=== PATIENT | male | born 1940 | race Caucasian/White ===

== ENCOUNTER 2017-01-01 07:25 | Day surgery (SDC) | payer OTHER ==
[~2017-01-01] VITALS: Ht 172.7 cm; Wt 106.2 kg
[~2017-01-01 07:25] MED LIST: AGGR20025 PO; ATOR40TA49 PO; CARV12.5 PO; LASI20TA PO; LEVO75TA3 PO; LOPE2 PO; MAGN400C2 PO; PIOG15 PO; POTA-267 PO; PRIL20CA PO; TAB-TAB PO; TERA2CAP3 PO; VIST25CA PO
[2017-01-01] MEDS ORDERED: SODIUM CHLORID 0.9% 500 ML IV PRN (08:00)
[2017-01-01] MEDS ORDERED: LACTATED RINGER'S 1000 ML IV PRN (08:00)
[2017-01-01] MEDS ORDERED: ceFAZolin 2 GM PREMIX 50 ML IV SCH (08:00)
[2017-01-01] MEDS ORDERED: POVIDONE IODINE 5% (ANTISEPSIS KIT) 4 APPLICATIONS EACH NARE PRN (08:00)
[2017-01-01] MEDS ORDERED: MUPIROCIN 2% OINT 1 APPLIC/GM SYR NASAL SCH (08:00)
[2017-01-01] MEDS ORDERED: INSULIN HUMAN REGULAR 1,000 UNITS/10 ML VIAL SQ PRN (08:00)
[2017-01-01] MEDS ORDERED: METOPROLOL TARTRATE 25 MG TAB PO PRN (08:00)
[2017-01-01] MEDS ORDERED: CHLORHEXIDINE GLUCONATE 2 % 1 PACK (2 CLOTHS) TOPICAL PRN (08:00)
[2017-01-01] MEDS ORDERED: NS 1000 ML IV SCH (08:00)
[2017-01-01 08:10] VITALS: BP 145/81; PULSE 73; RESP 19; TEMP 97.8; O2SAT 98
[2017-01-01] MEDS ORDERED: VIST25CA PO (08:12)
[2017-01-01] MEDS ORDERED: FURO1TAB62 PO (08:12)
[2017-01-01] MEDS ORDERED: SINE25TA PO (08:12)
[2017-01-01] MEDS ORDERED: PRIN5TAB PO (08:12)
[2017-01-01] MEDS ORDERED: LIPI20TA PO (08:12)
[2017-01-01] MEDS ORDERED: FISH1000 (08:12)
[2017-01-01] MEDS ORDERED: AGGR20025 PO (08:12)
[2017-01-01] MEDS ORDERED: CARV12.5 PO (08:12)
[2017-01-01] MEDS ORDERED: MULT1TAB46 (08:12)
[2017-01-01] MEDS ORDERED: CO Q100C9 (08:12)
[2017-01-01] MEDS ORDERED: POTA-243 PO (08:12)
[2017-01-01] MEDS ORDERED: ARIC23TA PO (08:12)
[2017-01-01] MEDS ORDERED: MAGN400T2 PO (08:12)
[2017-01-01] MEDS ORDERED: VITA100018 PO (08:12)
[2017-01-01] MEDS ORDERED: MIRA0.5T PO (08:12)
[2017-01-01] MEDS ORDERED: TAMS5CAP PO (08:12)
[2017-01-01] MEDS ORDERED: PRIL20TA2 (08:12)
[2017-01-01] MEDS ORDERED: GLIM2TAB PO (08:12)
[2017-01-01] MEDS ORDERED: ACTO15TA11 PO (08:12)
[2017-01-01] MEDS ORDERED: LEVO.075 PO (08:12)
[2017-01-01] MEDS ORDERED: DIAZ2 PO (08:12)
[2017-01-01] MEDS: CHLORHEXIDINE GLUCONATE 2 % 1 PACK (2 CLOTHS) TOPICAL SCH ×2 (08:13→08:15)
[2017-01-01] MEDS: POVIDONE IODINE 5% (ANTISEPSIS KIT) 4 APPLICATIONS EACH NARE SCH ×2 (08:13→08:15)
[2017-01-01 08:16] LABS: AUTOMATED NEUTROPHIL # 6.6 TH/MM3 (1.8-7.7); BASOPHIL % 0.3 % (0.0-2.0); EOSINOPHIL # 0.1 TH/MM3 (0-0.4); EOSINOPHIL % 0.7 % (0.0-4.0); HEMATOCRIT 44.7 % (39.0-51.0); LYMPH % 20.1 % (9.0-44.0); LYMPHOCYTE # 1.9 TH/MM3 (1.0-4.8); MEAN CELL VOLUME 92.2 FL (80.0-100.0); MEAN CORPUSCULAR HEMOGLOBIN 31.1 PG (27.0-34.0); MEAN CORPUSCULAR HGB CONC 33.8 % (32.0-36.0); NEUT % 70.9 % (16.0-70.0); PLATELET COUNT 66 TH/MM3 (150-450); RED BLOOD COUNT 4.85 MIL/MM3 (4.50-5.90); RED CELL DISTRIBUTION WIDTH 13.8 % (11.6-17.2); WHITE BLOOD COUNT 9.4 TH/MM3 (4.0-11.0)
[2017-01-01] MEDS ORDERED: SODIUM CHLOR 0.9% 250 ML INJ 250 ML ONE (08:16)
[2017-01-01] MEDS ORDERED: VANCOMYCIN HCL 1000 MG VIAL ONE (08:16)
[2017-01-01 08:22] LABS: HEMO FLAGS AUTO DIFF
[2017-01-01 08:23] LABS: APTT (PATIENT) 26.5 SEC (24.3-30.1); INTERNATIONAL NORMALIZED RATIO 1.1 RATIO; PROTHROMBIN TIME - PATIENT 11.8 SEC (9.8-11.6)
[2017-01-01 08:43] LABS: BICARBONATE 33.1 MEQ/L (21.0-32.0); POTASSIUM 4.3 MEQ/L (3.5-5.1)
[2017-01-01 09:04] LABS: PLATELET ESTIMATE SMEAR LOW (NORMAL)
[2017-01-01 09:05] LABS: PLATELET MORPHOLOGY NORMAL (NORMAL); SCAN/DIFF AUTO DIFF CONFIRMED
[2017-01-01] MEDS ORDERED: LIDOCAINE HCL 2% 50 ML VIAL ONE (09:11)
[2017-01-01] MEDS ORDERED: ACETAMINOPHEN 325 MG TAB PO PRN (10:15)
[2017-01-01] MEDS ORDERED: LEVA500T20 PO (10:17)
--- NOTE | 2017-01-01 10:20 | CATHPROC ---
[employer] HIS Report Study Information Study Number Scheduled Start Study Start [id number] 01/01/2017 Jan 01 2017 8:43AM Referring Institution Admit Source Facility Department 1 Other [facility] - Microphone Boom Operator Physician and Clinical Staff Initial Hannah Rodriguez Minute Clerk Lyn Solomon,RT(R) TECH2 Additional Sea Allred Recorder Lyssa Scott,RN Scrub Khai Bojorquez,RT(R) Equipment Time Satellite Manager Description Size Mfg Part Number Used/Scraped [id number] 08:46 MEDLINE INDUSTRIES SUTURE, STRIP PLUS 1/2" * Used *[id number] 08:46 MEDLINE PACER ADHESIVE, MASTISOL 2/3CC 2/3CC 0523-48 Used 08:46 MEDLINE PACER ADKINS, LIMB * 2530 *[id number] Used [id number] 08:46 MEDLINE PACER PACK, PACER CUSTOM * Used *[id number] 08:46 MEDLINE PACER PEN, SKIN DUAL W/ RULER * Used *[id number] 09:27 Needle Sponge Count 1 111 Used 09:26 Needle Sponge Count 1 1 Used 09:27 Needle Sponge Count 25 1 Used [id number] *[id number] SUTURE, 3-0 VICRYL [SH] ([id number]) SUTURE, 3-0 VICRYL [SH] ([id number]) SUTURE, 4-0 MONOCRYL [PS2] ([id number]) [id number] 08:46 [employer] BLANKET,WARM AIR CCL * Used *[id number] DEFIBRILLATOR, FORTIFY 09:41 [facility] MED[employer] VVEDDDDR [id number] Used TRISTA BARNETT [facility] PAD, ELECTROSURGICAL 08:46 * [id number] *[id number] Used SURGICAL GROUNDING ORANGE 08:46 VITATRON MEDTRONIC PLASMABLADE, PEAD 3.0S * [id number] Used [id number] 08:46 [employer] ELAINE. ELECTRODE, PRO-PADZ BIPHASIC * Used *[id number] Equipment Model, Serial, Lot Number and Expiration Data Description Model Number Serial Number Lot Number Expiration Paolo e DEFIBRILLATOR, FORTIFY TRISTA [id number] 06-06-2018 History: Allergies Allergy Reaction No Known Allergies History: Risk Factors Family History of Hypertension Dyslipidemia Previous MN Previous Heart Failure Premature CAD Yes Yes Yes Yes Yes Prior Valve Prior PCI Prior CABG Prior CABGDate Surgery No No Yes 07/09/1995 Cerebrovascular Peripheral Artery Chronic Lung On Dialysis Diabetes Diabetes Therapy Disease Disease Disease No Yes Yes No Yes Oral Labs Hgb (g/dl) Hct (%) RBC (MIL/MM3) WBC (l/cumm) Platelets (thousands) 11.60-17.00 35.00-51.00 4.00-5.90 4.00-11.00 150.00-450.00 15.1 44.7 4.8 9.4 66 Glucose (mg/dl) BUN (mg/dl) Creatinine (mg/dl) BUN:Creatinine (1:x) 74.00-106.00 7.00-18.00 0.50-1.30 10.00-20.00 103 24 1.6 15 Na (meq/l) K (meq/l) 136.00-145.00 3.50-5.10 142 4.3 INR (PTT:PT) 0.90-1.10 1.1 CPK-MB (ng/ML) 0.50-3.60 Not Drawn Medication Medication Total Dose (Bolus/Oral) Medication Total Dosage/Unit 2% XYLOCAINE 10 mL Medications (Bolus/Oral) Medication Time Given Dosage/Unit Administered By Reason 2% XYLOCAINE 01/01/2017 9:39:25 AM 10 mL Sea Cole 10 mL 2% XYLOCAINE given in lab by Sea Cole via Subcutaneous. Ordered by Sea Cole. Left upper Chest Medication (Drip) Medication Time Given Dosage/Unit Concentration/Unit Diluent (ml) Solution ANCEF 01/01/2017 9:06:00 AM 2 g 2 g ANCEF given in lab by Lyssa Scott, RACHEL in Left Wrist via Peripheral IV. Ordered by Edilberto Cole VANCOMYCIN DRIP 01/01/2017 9:07:00 AM 1 g 1 g VANCOMYCIN DRIP given in lab by Lyssa Scott, RACHEL in Left Wrist via Peripheral IV. Ordered by Sea Crooks. Initial Case Assessment Cardiovascular HR Rhythm NIBP Chest Pain 70 Regular 136/68 0 Edema Present Skin color Skin Mild Normal Warm Dry Circulatory - Right Pulses Dorsalis Pedis 1 Scale (0,1,2,3,4,d) Circulatory - Left Pulses Dorsalis Pedis 1 Scale (0,1,2,3,4,d) Circulatory - Lower Extremities Color Lower Right Color Lower Left Normal Normal Neurological State Oriented to time-place- Alert Moves all extremities person Respiration - General Respiration Rate SpO2 (%) (B/min) 16 98 Final Case Assessment Cardiovascular HR Rhythm NIBP Chest Pain 75 regular 112/56 0 Edema Present Skin color Skin Mild Normal Warm Dry Circulatory - Right Pulses Dorsalis Pedis 1 Scale (0,1,2,3,4,d) Circulatory - Left Pulses Dorsalis Pedis 1 Scale (0,1,2,3,4,d) Circulatory - Lower Extremities Color Lower Right Color Lower Left Normal Normal Neurological State Oriented to time-place- Alert Moves all extremities person Respiration - General Respiration Rate SpO2 (%) O2 (lpm) (B/min) 14 100 4 Chronological Log Time Study Chronological Log 8:53:16 Patient arrived via Bed. 8:53:18 Patient Name, D.O.B, / Armband Verified By R.N. 8:53:19 Consent signed by the physician and the patient and verified by the Microphone Boom Operator staff. 8:53:20 Pre-op and post- op instructions given; patient acknowledges understanding of instructions. 8:54:00 Verbal Stimulation=2 Physical Stimulation=2 Airway=2 Respiration=2 TOTAL=8. (0=absent, 1=li mited, 2=present) 9:00:00 Anesthesia at bedside. DEBRA Schilling assumes care of patient. 9:01:00 Patient has been NPO for More than 6Hrs. 9:01:30 Skin Breakdown- generalized ecchymosis, bilateral calf and mustafa erythema noted 9:02:00 Patient Warmer Placed on the Table. 9:02:20 Disposable Defibrillator Pads Placed On Patient. 9:02:30 Jonathan Prominences Protected 9:02:45 Tachytherapy turned off by Ciara from [facility] per Dr Cole 9:03:00 A # 20 IV was noted in the Wrist (left). Grade = 0 0.9NS infusing at KVO 9:03:10 A # 20 IV was noted in the Forearm (right). Grade = 0 0.9NS infusing at KVO Dr Cole aware that pt took aggrenox dose yesterday and plt count resulted at 66 today. Will pr oceed with pricedure 9:03:30 per MD 9:04:00 History and physical on the chart or being dictated. Assessment: Initial Case, HR=70 BPM, Rhythm=Regular, FDHU=657/68 mmhg, Chest Pain=0, Edema=Mild , Color=Normal, Skin = Warm, Dry Right Pulses: Getachew Ped=1 Left Pulses: Getachew Ped=1 9:05:00 Lower Right Extremities: Color=Normal Lower Left Extremities: Color=Normal Neurological: State=Alert, Ox3, BOYER Respiration: Resp=16 B/min, SpO2=98 % 9:05:15 Table restraints applied according to hospital policy 9:06:00 2 g ANCEF given in lab by Lyssa Scott, RACHEL in Left Wrist via Peripheral IV. Ordered by Sea Zaldivar. 9:07:00 1 g VANCOMYCIN DRIP given in lab by Lyssa Scott, RACHEL in Left Wrist via Peripheral IV. Ord ered by Sea Cole. 9:10:00 2% CHLORHEXIDINE GLUCONATE WASH AND NASAL SWIPE DONE PRIOR TO PROCEDURE. 9:24:16 Left Upper Chest Prepped Times Two. First Sponge And Instrument Count Done by Khai Bojorquez, RT(R). 9:26:14 Hypo's: 1, Sponges: 25, Bovie/scratch: 1 Sutures: 3, Blades: 2, Instruments: 25, Syveck Patches: 0 verified with Lyn H 9:27:06 paged 9:28:29 MD responded 9:32:48 Reference ECG taken 9:35:00 MD arrived. Time Out #2 - Consents verified, patient in correct position, all results are labled and displa yed, safety precautions 9:38:54 taken, antibiotics administered. Time out concurred by MD, individual staff and BANQUET SERVER in procedu re Time Out. Correct patient, procedure, procedure equipment, site and side verified with physicia n present. Time 9:38:55 concurred by MD, individual staff and BANQUET SERVER. 9:39:24 Case Start 9:39:25 10 mL 2% XYLOCAINE given in lab by Sea Cole via Subcutaneous. Ordered by Sea Cole. L eft upper Chest 9:41:02 Surgical Incision Made. 9:41:46 A pocket was created at the L Upper Chest. 9:43:11 A device was explanted. 9:46:22 A DEFIBRILLATOR, ELSY CRUZEDDDDLaura was connected and placed in the pocket. 9:47:50 The RV lead impedance and threshold being tested. 9:47:54 The Atrial lead impedance and threshold is being tested. 9:50:49 Tonny placed in pocket by Dr Cole Second Sponge And Instrument Count Done by Khai Bojorquez RT(R). Hypo's: 1, Sponges: 25, Bovie/scratch: 1 9:51:38 Sutures: 4, Blades: 2, Instruments: ~INSTRU~, Syveck Patches: ~SYVECK PATCH~ verified with Heat her H, one sutured added during case 9:52:20 The pocket was closed. 9:55:26 Implantable Device card placed in patient's chart. 9:55:29 DOCU called. Spoke to RACHEL Martell 9:55:48 Bedside Report will be given. 10:04:52 A two Joul DFT was performed. 10:05:15 The DFT was Success at 20 Joules, ~OHMS~ Ohms lead impedance and ~TIME~ ms charge time. 10:05:50 Case End 10:06:06 Sterile dressing applied to site 10:06:15 No case complications noted. 10:06:16 Cine recording checked. Final Sponge And Instrument Count Done by Khai Bojorquez RT(R). 10:07:21 Hypo's: 1, Sponges: 25, Bovie/scratch: 1 Sutures: 4, Blades: 2, Instruments: 25, Syveck Patches: 0 verified with Lyn H, one sutured added during case 10:10:11 Verbal Stimulation=2 Physical Stimulation=2 Airway=2 Respiration=2 TOTAL=8. (0=absent, 1=l imited, 2=present) Assessment: Final Case, HR=75 BPM, Rhythm=regular, RTWJ=869/56 mmhg, Chest Pain=0, Edema=Mild, Color=Normal, Skin = Warm, Dry Right Pulses: Getachew Ped=1 Left Pulses: Getachew Ped=1 10:10:22 Lower Right Extremities: Color=Normal Lower Left Extremities: Color=Normal Neurological: State=Alert, Ox3, BOYER Respiration: Resp=14 B/min, WwE1=170 %, O2=4 lpm 10:15:06 Defibrillator and ground pads removed. Skin intact. 10:15:19 Implant Procedure was performed. 10:15:26 A ICD Implant . (Dual) 10:23:00 Patient moved to stretcher End Study - Contrast Media Used In Study Contrast Total Opened (mL) Total Used (mL) Total Wasted (mL) Unspecified 0 0 0 End Study - Maximum Contrast Load Max Contrast Load (mL) 331.8 End Study - Radiation Exposure Fluoro Time (minutes) 0.1 End Study - Patient Disposition Complications Transferred To Interventional Outcome No Telemetry Bed successful
--- NOTE | 2017-01-01 17:08 | EKG ---
Date Performed: 01/01/2017 Time Performed: 08:10:50 PTAGE: 76 years EKG: Sinus rhythm . Left axis deviation RBBB with left anterior fascicular block Possible anterior infarct - age undete rmined Inferior/lateral T wave changes are nonspecific Abnormal ECG PREVIOUS TRACING : 02/10/2015 18.08 Compared to prior tracing no significant change DOCTOR: Darnell Mclaughlin Interpretating Date/Time 01/01/2017 17:07:41
--- NOTE | 2017-01-03 07:38 | MP ---
cc: DESTIN REYNOLDS MD, [place] DATE OF SURGERY 01/01/2017 PROCEDURE 1. AICD generator replacement. 2. AICD defibrillation threshold testing. OPERATIVE NOTE The patient was brought to the operating suite in a fasting state after having signed informed consent. The left upper chest was prepped and draped as per policy and anesthetized with 1% lidocaine. A transverse incision was made over the preexisting generator using a plasma blade and using blunt dissection, the generator was freed from the subcutaneous pocket. The leads were disconnected and then reconnected to the new generator which is a [employer] device model number [id number]. The right atrial, right ventricular pacing parameters were found to be excellent. The leads and the generator were placed back into the pocket which was closed using 3-0 Vicryl interrupted stitches in two to three layers to close the subcutaneous tissue and then 4-0 Monocryl running stitch to close the subcuticular tissue. Overlapping Steri-Strips and a dressing were applied. Testing of the device was then done. Ventricular fibrillation was induced. The patient was successfully rescued with a 20 joules shock after a charge time of 3.5 seconds at a shock impedance of 49 ohms. There were no apparent immediate complications. The patient tolerated the procedures well. CONCLUSION 1. Successful AICD generator replacement using a [employer] AICD generator. 2. Status post AICD defibrillation threshold testing. MD STARLA Fontanez/DJL /10:14 AM /7:39 AM [facility]
== END 2017-01-01 12:45 | disposition home or self-care (01) ==
LOC: HDOC 07:25 → HDIC 07:26 → HDOC 12:45
PROVIDERS: ATTEND Internal Medicine Cardiovascular Disease
DX: Z45.02 Encounter for adjustment and management of automatic implantable cardiac defibrillator (principal); I11.0 Hypertensive heart disease with heart failure; I50.9 Heart failure, unspecified; E78.5 Hyperlipidemia, unspecified; I25.10 Atherosclerotic heart disease of native coronary artery without angina pectoris; Z95.1 Presence of aortocoronary bypass graft
CPT/HCPCS: 33263; 80048; 85025; 85610; 85730; 93005; 93641; C1721; J0690; J3370; J7050